=== PATIENT | male | born 1945 | race Caucasian/White ===

== ENCOUNTER 2018-05-01 11:56 | Emergency (ER) | payer OTHER ==
[~2018-05-01] VITALS: Ht 175.3 cm; Wt 74.8 kg
[2018-05-01] MEDS ORDERED: ALFALFA250 MG PO (12:31)
[2018-05-01] MEDS ORDERED: GLUC500 PO (12:31)
[2018-05-01 12:32] LABS: BASOPHILS ABSOLUTE AUTO 0.06 K/mm3 (0.00-0.23); BASOPHILS PERCENT AUTO 1 % (0-2); EOSINOPHILS ABSOLUTE AUTO 0.07 K/mm3 (0.00-0.68); EOSINOPHILS PERCENT AUTO 1 % (0-6); Hematocrit 44.7 % (37.0-53.0); Hemoglobin 14.8 g/dL (13.5-17.5); IMMATURE GRAN ABSOLUTE AUTO 0.02 K/mm3 (0.00-0.10); IMMATURE GRAN PERCENT AUTO 0 % (0-1); LYMPHOCYTES PERCENT AUTO 18 % (21-46); MONOCYTES ABSOLUTE AUTO 0.55 K/mm3 (0.16-1.47); MONOCYTES PERCENT AUTO 8 % (4-13); Mean Corpuscular HGB 31.6 pg (26.0-34.0); Mean Corpuscular HGB Conc 33.1 g/dL (31.5-36.5); Mean Corpuscular Volume 95 fL (80-100); Mean Platelet Volume 11.2 fL (9.1-12.4); NEUTROPHILS ABSOLUTE AUTO 5.22 K/mm3 (1.96-9.15); NEUTROPHILS PERCENT AUTO 72 % (41-73); Platelet Count 225 K/mm3 (150-400); RDW Coefficient Variation 13.4 % (11.7-14.2); RDW Standard Deviation 47.7 fL (35.1-46.3); Red Blood Cell Count 4.69 M/mm3 (4.30-5.90); White Blood Cell Count 7.22 K/mm3 (4.00-11.30)
[2018-05-01] MEDS ORDERED: OMEPRAZOLE MAGN20 MG PO (12:32)
[2018-05-01] MEDS ORDERED: SIMV40 PO (12:32)
[2018-05-01] MEDS ORDERED: TERA5 (12:33)
[2018-05-01] MEDS ORDERED: Cialis2.5 MG (12:33)
[2018-05-01 13:07] LABS: Alanine Aminotransfer (ALT/SGP 23 U/L (12-78); Albumin, Blood 3.2 g/dL (3.4-5.0); Albumin/Globulin Ratio 0.9 (0.8-1.8); Alk Phos 78 U/L (50-136); Anion Gap 9 mmol/L (6-16); Aspartate Aminotrans (AST/SGOT 13 U/L (12-37); Bilirubin, Total 0.6 mg/dL (0.1-1.0); Blood Urea Nitrogen 30 mg/dL (8-24); Bun/Creatinine Ratio 24.8 (12.0-20.0); CO2, Blood 23 mmol/L (21-32); Calcium, Blood 8.6 mg/dL (8.5-10.1); Chloride, Blood 111 mmol/L (98-108); Creatinine, Blood 1.21 mg/dL (0.60-1.20); Globulin, Blood 3.4 g/dL (2.2-4.0); Glomerular Filtration Rate >60 (60-); Glucose, Blood 91 mg/dL (70-99); Potassium, Blood 4.2 mmol/L (3.5-5.5); Sodium, Blood 143 mmol/L (136-145); Total Protein, Blood 6.6 g/dL (6.4-8.2); Troponin I 0.022 ng/mL (0.000-0.040)
[2018-05-01] MEDS ORDERED: ELIQUIS5 MG PO (14:17)
[2018-05-01] MEDS ORDERED: Lopressor 25 mg25 MG PO (14:17)
== END 2018-05-01 15:12 | disposition home or self-care (01) ==
LOC: ER 11:56
PROVIDERS: Internal Medicine
DX: I48.91 Unspecified atrial fibrillation (principal); E78.5 Hyperlipidemia, unspecified; K21.9 Gastro-esophageal reflux disease without esophagitis; N18.9 Chronic kidney disease, unspecified; Z79.899 Other long term (current) drug therapy
CPT/HCPCS: 36415; 71046; 80053; 84484; 85025; 93005; 93010; 99285-25

== ENCOUNTER 2020-04-29 10:06 | Day surgery (SDC) | payer OTHER ==
[~2020-04-29] VITALS: Ht 175.3 cm; Wt 77.1 kg
[~2020-04-29 10:06] MED LIST: ACET500 PO; ALFALFA250 MG PO; ASPI81CH PO; CAPE500 PO; Cetirizine HCl10 MG PO; Cialis2.5 MG; ELIQUIS5 MG PO; GLUC500 PO; GLUCHON PO; Lopressor 25 mg25 MG PO; MSM1000 M3 PO; Metoprolol Tar100 MG PO; OMEP20ER PO; OMEPRAZOLE MAGN20 MG PO; SIMV40 PO; TERA5; TURMERIC500 M2 PO
--- NOTE | 2020-04-29 11:57 | NUR ---
History, Chart, Medications and Allergies reviewed before start of procedure.Patient confirms NPO status and agrees with scheduled surgery. Patient reports completing Chlorhexadine shower X2 prior to admission to hospital.Surgical site prepped with 2% Chlorhexidine cloth wipe.
--- NOTE | 2020-04-29 14:27 | NUR ---
MEDIPORT PLACEMENT CONFIRMED BY DR. CARLIN
--- NOTE | 2020-04-29 14:55 | NUR ---
Patient up to Ambulate independently. Gait steady.UP TO USE RESTROOM. Discharge instructions reviewed with patient. Patient verbalizes understanding. Copy given to patient to take home.PT DID NOT WANT STAFF TO REVIEW DISCHARGE INST WITH ANYONE. Discharged via wheelchair to private car for ride home WITH FRIEND.
== END 2020-04-29 14:50 | disposition home or self-care (01) ==
LOC: ORSCMMR 10:06 → ORD 11:30 → ORSCMMR 11:30
PROVIDERS: Surgery
PROC: 0JH60WZ Insertion of Totally Implantable Vascular Access Device into Chest Subcutaneous Tissue and Fascia, Open Approach (ICD-10-PCS; principal; 2020-04-29 11:30)
DX: C20 Malignant neoplasm of rectum (principal); N18.9 Chronic kidney disease, unspecified; E78.5 Hyperlipidemia, unspecified; Z79.82 Long term (current) use of aspirin; Z79.899 Other long term (current) drug therapy; Z87.891 Personal history of nicotine dependence
CPT/HCPCS: 77001; C1788; J0690; J1100; J1642; J2370; J2405; J2704; J2710; J3010; J7120

== ENCOUNTER 2020-05-16 02:39 | Emergency (ER) | payer OTHER ==
[~2020-05-16] VITALS: Ht 175.3 cm; Wt 78.0 kg
[2020-05-16 03:13] LABS: Albumin, Blood 2.9 g/dL (3.4-5.0); Albumin/Globulin Ratio 0.7 (0.8-1.8); Bilirubin, Total 0.7 mg/dL (0.1-1.0); Bun/Creatinine Ratio 19.6 (12.0-20.0); Calcium, Blood 8.8 mg/dL (8.5-10.1); Creatinine, Blood 1.43 mg/dL (0.60-1.20); Globulin, Blood 4.3 g/dL (2.2-4.0); Potassium, Blood 4.5 mmol/L (3.5-5.5); Total Protein, Blood 7.2 g/dL (6.4-8.2)
[2020-05-16 03:14] LABS: Hematocrit 47.2 % (37.0-53.0); Hemoglobin 16.5 g/dL (13.5-17.5); Mean Corpuscular HGB 33.1 pg (26.0-34.0); Mean Corpuscular Volume 95 fL (80-100); NRBC ABSOLUTE 0.02 K/mm3 (0.00-0.02); NRBC Auto 0.6 /100 WBC (0.0-0.2); RDW Coefficient Variation 16.3 % (11.7-14.2); RDW Standard Deviation 56.5 fL (35.1-46.3); Red Blood Cell Count 4.99 M/mm3 (4.30-5.90); White Blood Cell Count 3.16 K/mm3 (4.00-11.30)
[2020-05-16 03:15] LABS: Mean Platelet Volume 10.6 fL (9.1-12.4); Platelet Count 149 K/mm3 (150-400)
[2020-05-16 03:20] LABS: BAND PERCENT MAN 22 % (0-8); BASOPHILS PERCENT MAN 0 % (0-2); EOSINOPHILS ABSOLUTE MAN 0.06 K/mm3 (0.00-0.68); EOSINOPHILS PERCENT MAN 2 % (0-6); LYMPHOCYTES ABSOLUTE MAN 0.34 K/mm3 (0.84-5.20); LYMPHOCYTES PERCENT MAN 11 % (21-46); MONOCYTES ABSOLUTE MAN 0.47 K/mm3 (0.16-1.47); MONOCYTES PERCENT MAN 15 % (4-13); NEUTROPHILS ABSOLUTE MAN 2.27 K/mm3 (1.96-9.15); SEG NEUTROPHILS PERCENT MAN 50 % (41-73); TOTAL CELLS COUNTED 100
[2020-05-16 05:10] LABS: Adenovirus F 40/41 Not Detected (NOT DETECT); Astrovirus Not Detected (NOT DETECT); Campylobacter Sp Not Detected (NOT DETECT); Cryptosporidium Not Detected (NOT DETECT); Cyclospora Cayetanensis Not Detected (NOT DETECT); E. Coli O157 Not Detected (NOT DETECT); Entamoeba Histolytica Not Detected (NOT DETECT); Enteroaggregative E. coli-EAEC Not Detected (NOT DETECT); Enteropathogenic E. coli-EPEC Not Detected (NOT DETECT); Enterotoxigenic E. coli-ETEC Not Detected (NOT DETECT); Giardia Lamblia Not Detected (NOT DETECT); Norovirus GI/GII Not Detected (NOT DETECT); Plesiomonas Shigelloides Not Detected (NOT DETECT); Rotavirus A Not Detected (NOT DETECT); Salmonella Sp Not Detected (NOT DETECT); Sapovirus Not Detected (NOT DETECT); Shiga Toxin-prod E. coli-STEC Not Detected (NOT DETECT); Shigella/Enteroin E. coli-EIEC Not Detected (NOT DETECT); Vibrio Cholerae Not Detected (NOT DETECT); Vibrio Sp Not Detected (NOT DETECT); Yersinia Enterocolitica Not Detected (NOT DETECT)
== END 2020-05-16 06:42 | disposition home or self-care (01) ==
LOC: ER 02:39
PROVIDERS: Emergency Medicine
DX: E86.0 Dehydration (principal); R19.7 Diarrhea, unspecified; R11.0 Nausea; R10.9 Unspecified abdominal pain; E78.5 Hyperlipidemia, unspecified; C20 Malignant neoplasm of rectum; Z79.899 Other long term (current) drug therapy; Z87.891 Personal history of nicotine dependence; Z92.21 Personal history of antineoplastic chemotherapy
CPT/HCPCS: 0097U; 80053; 85025; 96361; 96365; 99284-25; J3230; J7030